=== PATIENT | female | born 1995 ===

== ENCOUNTER 2020-12-08 18:41 | Emergency (ER) | payer BC ==
[~2020-12-08] VITALS: Ht 165.1 cm; Wt 64.9 kg
[2020-12-08 21:00] LABS: *BILIRUBIN,URIN NEGATIVE (NEGATIVE); *BLOOD, URINE NEGATIVE (NEGATIVE); *CLARITY,URINE CLEAR (CLEAR); *COLOR,URINE YELLOW (YELLOW); *KETONES,URINE NEGATIVE (NEGATIVE); *URINE HCG, QUAL NEGATIVE (NEGATIVE); *UROBILINOGEN,URINE 0.2 E.U./dl (NORMAL); LEUKOCYTE ESTERASE ,URINE NEGATIVE (NEGATIVE); NITRITE, URINE NEGATIVE (NEGATIVE); PH,URINE 6.5 (5.0-8.0); UGLUCOSE NEGATIVE (NEGATIVE)
[2020-12-08] MEDS ORDERED: HYDROCODONE/APAP 10-325 MG TABLET PO ONE (21:15)
[2020-12-08] MEDS ORDERED: MAGNESIUM HYDROXIDE 30 ML LIQUID UDC PO ONE (21:15)
[2020-12-08] MEDS ORDERED: MAGNESIUM CITRATE 296 ML BOTTLE PO ONE (21:15)
[2020-12-08] MEDS ORDERED: HYDROCODONE/APAP 10-325 MG TABLET ONE (21:19)
[2020-12-08] MEDS ORDERED: MAGNESIUM HYDROXIDE 30 ML LIQUID UDC ONE (21:19)
[2020-12-08] MEDS ORDERED: MAGNESIUM CITRATE 296 ML BOTTLE ONE (21:20)
[2020-12-08 21:49] VITALS: BP 120/74
--- NOTE | 2020-12-08 21:50 | NUR ---
Patient discharged to home in stable condition. Written and verbal after care instructions given. Patient verbalizes understanding of instructions. Stressed follow up or return to ER for worsening s/s. No acute distress. All belongings with pt.
== END 2020-12-08 21:50 | disposition home or self-care (01) ==
LOC: ER 18:41
DX: K59.00 Constipation, unspecified (principal); M79.10 Myalgia, unspecified site; J02.9 Acute pharyngitis, unspecified; R50.9 Fever, unspecified; Z20.822 Contact with and (suspected) exposure to COVID-19
CPT/HCPCS: 84703; A4663